=== PATIENT | female | born 1970 | race Two or more races ===

== ENCOUNTER 2016-10-08 18:37 | Emergency (ER) | payer SELFPAY ==
[~2016-10-08] VITALS: Ht 160 cm; Wt 59.0 kg
[2016-10-08 19:08] VITALS: BP 132/81
[2016-10-08 19:23] LABS: APPEARANCE,URINE CLEAR; KETONES,URINE NEGATIVE (NEGATIVE); LEUKOCYTE ESTERASE ,URINE NEGATIVE (NEGATIVE); NITRITE,URINE NEGATIVE (NEGATIVE); PH,URINE 5 (4.5-8.0); PROTEIN,URINE NEGATIVE (NEGATIVE); UROBILINOGEN,URINE NORMAL MG/DL (0.0-1.0)
[2016-10-08 19:27] LABS: BACTERIA,URINE FEW /HPF; SQUAMOUS EPITHELIAL CELL,UR FEW /LPF (NONE/OCC); WBC,URINE 0-2 /HPF (0 - 2)
[2016-10-08 19:39] VITALS: BP 132/81
--- NOTE | 2016-10-09 11:16 | Diagnostic Imaging Report ---
Indication: Chest Pain Comparison: None A single view chest radiograph was obtained. Findings: Cardiomediastinal appearance is within normal limits for age. Pulmonary vascularity is appropriate. The diaphragmatic contour is smooth and costophrenic angles are sharp. No pleural effusions are identified. The bones are unremarkable. Impression: No acute findings
--- NOTE | 2016-10-10 07:12 | Emergency Room Report ---
History of Present Illness General Chief Complaint: General Complaint Source: Patient Present Illness HPI Patient present with complaints of fatigue and general weakness Patient reports that she has a history of previous low thyroid Denies any vomiting or diarrhea denies any chest pain Denies any syncopal episode Denies any change in medications Denies any neck pain or photophobia Allergies: Coded Allergies: ACETAMINOPHEN (Verified Allergy, Unknown, 10/08/16) MILK (Verified Allergy, Unknown, 10/08/16) Patient History Past Medical History: see triage record Pertinent Family History: none Last Menstrual Period: 15 days ago Now: No Reviewed Nursing Documentation: PMH: Agreed, PSxH: Agreed Nursing Documentation-PMH Past Medical History: No History, Except For Review of Systems All Other Systems: negative except mentioned in HPI Physical Exam Vital Signs Date Time Temp Pulse Resp B/P Pulse Ox O2 Delivery O2 Flow Rate FiO2 10/08/16 18:49 98.2 67 17 98/65 99 Room Air Sp02 EP Interpretation: reviewed, normal General Appearance: well appearing, no apparent distress Head: normocephalic, atraumatic Eyes: bilateral eye EOMI, bilateral eye PERRL ENT: hearing grossly normal, normal pharynx, TMs + canals normal, uvula midline Neck: full range of motion, supple, no meningismus, no bony tend, other - No obvious palpable thyroid mass Respiratory: lungs clear, normal breath sounds, no rhonchi, no respiratory distress, no retraction, no accessory muscle use Cardiovascular #1: normal peripheral pulses, regular rate, rhythm, no edema, no gallop, no JVD, no murmur Gastrointestinal: normal bowel sounds, non tender, soft, no mass, no organomegaly, non-distended, no guarding, no hernia, no pulsatile mass, no rebound Musculoskeletal: normal inspection Neurologic: oriented x3, responsive, 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 tested, motor strength/ tone normal, sensory intact Psychiatric: mood/affect normal Skin: normal color, no rash, warm/dry, palpation normal Lymphatic: normal inspection, no adenopathy Medical Decision Making Diagnostic Impression: Primary Impression: Weakness ER Course On initial presentation multiple differentials considered including but not limited to infectious, thyroid disease, metabolic pathology After initial initiation of the workup Patient reports that she does not want to pursue further testing or workup in the emergency room Patient reports that she has insurance concerns She is aware that the lack of workup will lead to possible missed emergencies And the patient would like to leave the emergency room prior to workup EKG Diagnostic Results Rate: normal Rhythm: NSR ST Segments: no acute changes Rhythm Strip Diag. Results EP Interpretation: yes Rate: 65 Rhythm: NSR, no PVC's, no ectopy Last Vital Signs Date Time Temp Pulse Resp B/P Pulse Ox O2 Delivery O2 Flow Rate FiO2 10/08/16 19:39 98.2 82 16 132/81 99 Room Air Status: unchanged Disposition: AGAINST MEDICAL ADVICE Condition: Unknown Referrals: NOT CHOSEN IPA/,REFERRING (PCP) SURYA RICE D.O. October 10, 2016 07:12
== END 2016-10-08 19:40 | disposition left against medical advice (07) ==
LOC: EMR 19:08
DX: R53.1 Weakness (principal); Z88.6 Allergy status to analgesic agent; Z91.011 Allergy to milk products
CPT/HCPCS: 71010; 81003; 81025; 99283